=== PATIENT | male | born 1980 | race Caucasian/White ===

== ENCOUNTER → 2016-09-01 | Outpatient (CLI) | payer OTHER ==
[~2016-09-01] VITALS: Ht 188 cm; Wt 111.1 kg
[~2016-09-01] MED LIST: NS 1,000 ML IV SCH; PROPOFOL 200 MG/20 ML VIAL As Ordered ONE; no meds
--- NOTE | 2016-09-01 08:18 | ROOR ---
Patient Name: Joon Rordiguez Procedure Date: 09/01/2016 7:55 AM Date of : 1980 Age: 36 Room: [facility] Gender: Male Note Status: Finalized Procedure: Colonoscopy to Cecum + Biopsy Polypectomy + Random Biopsies Indications: Abdominal pain in the right lower quadrant, Abnormal CT of the GI tract Providers: Stevenson Brantley MD Referring MD: AKANKSHA JOEL MD Requesting Provider: Medicines: Monitored Anesthesia Care Complications: No immediate complications. Procedure: Pre-Anesthesia Assessment: - The heart rate, respiratory rate, oxygen saturations, blood pressure, adequacy of pulmonary ventilation, and response to care were monitored throughout the procedure. The Colonoscope was introduced through the anus and advanced to the cecum, identified by appendiceal orifice and ileocecal valve. The colonoscopy was performed without difficulty. The patient tolerated the procedure well. The quality of the bowel preparation was excellent. Findings: The perianal and digital rectal examinations were normal. Non-bleeding external hemorrhoids were found during retroflexion. The hemorrhoids were mild and Grade I (internal hemorrhoids that do not prolapse). No other significant abnormalities were identified in a careful examination of the remainder of the colon. A diminutive polyp was found at 30 cm proximal to the anus. The polyp was sessile. The polyp was removed with a cold biopsy forceps. Resection and retrieval were complete. Biopsies for histology were taken with a cold forceps from the ascending colon, transverse colon and descending colon for evaluation of microscopic colitis. The exam was otherwise without abnormality. Impression: - Non-bleeding external hemorrhoids. - One diminutive polyp at 30 cm proximal to the anus, removed with a cold biopsy forceps. Resected and retrieved. Biopsied. - The examination was otherwise normal. - The exam was otherwise normal to the cecum. Recommendation: - Patient has a contact number available for emergencies. The signs and symptoms of potential delayed complications were discussed with the patient. Return to normal activities tomorrow. Written discharge instructions were provided to the patient. - High fiber diet. - Discharge patient to home. - Continue present medications. - Await pathology results. - Telephone GI clinic for pathology results in 1 week. - Repeat colonoscopy at age 51 for screening purposes. - Return to referring physician. - The findings and recommendations were discussed with the patient's family. Stevenson Brantley MD Stevenson Brantley MD 09/01/2016 8:18:04 AM This report has been signed electronically. Number of Addenda: 0 Note Initiated On: 09/01/2016 7:55 AM Estimated Blood Loss: Estimated blood loss: none.
[2016-09-01 08:35] VITALS: BP 116/86
== END | disposition home or self-care (01) ==
LOC: M OPP 07:01
PROVIDERS: ATTEND Internal Medicine Gastroenterology
DX: K64.0 First degree hemorrhoids (principal); D12.5 Benign neoplasm of sigmoid colon; K82.9 Disease of gallbladder, unspecified; R06.83 Snoring

== ENCOUNTER → 2016-10-08 | Outpatient (REF) | payer OTHER ==
[~2016-10-08] MED LIST changes: -NS 1,000 ML IV SCH; -PROPOFOL 200 MG/20 ML VIAL As Ordered ONE
== END ==
LOC: M SMT 17:09
PROVIDERS: ATTEND Nurse Practitioner Women's Health
DX: R10.9 Unspecified abdominal pain (principal)

== ENCOUNTER → 2016-10-30 | Outpatient (CLI) | payer OTHER ==
[~2016-10-30] MED LIST changes: +ISOVUE-370 76% 100ML VIAL (Q9967) As Ordered ONE
--- NOTE | 2016-10-30 17:51 | REP ---
CT ABDOMEN AND PELVIS WITHOUT AND WITH CONTRAST: 10/30/2016. Clinical history: RLQ quadrant abdominal pain. Comparison: CT without contrast 06/19/2016, 06/17/2016 at [facility]. Technique: Noncontrast scanning performed followed by bolus of 100 ml Isovue 370, scanning through the abdomen and pelvis. Coronal and sagittal reconstructions were provided. Findings: CT abdomen: The lung bases remain clear. Heart is not enlarged. There is no pericardial thickening or effusion. No hiatal hernia. Liver and spleen are without focal lesion. No hepatic mass, biliary dilatation nor adjacent ascites in the upper abdomen. Adrenal glands normal with only a small amount of retained fluid. Pancreas shows no mass, ductal dilatation or inflammatory change. Kidneys show function without obstruction, stone, mass, perinephric edema or other acute finding. The abdominal aorta is without aneurysm or dissection. No periaortic or other retroperitoneal lymphadenopathy. Small bowel loops in the upper abdomen show slight wall thickening which may reflect some gastroenteritis. Lung window review of all CT slice levels shows no sign of perforation or abscess. Bone windows show lumbar and lower thoracic spine as well as the posterior elements and visualized ribs intact. CT pelvis: Bony hips, pelvis, sacrum and symphysis pubis show no acute finding. There are a few tiny bone islands in the left sacral ala and right iliac bone adjacent to the sacrum as benign stable findings. Bladder only partly filled but without stone, mass or wall thickening. Distal left colon and sigmoid unremarkable. There is no definite sign of colitis or diverticulitis. Appendix is seen and normal. There is no inflammatory change or dilatation. There is some very subtle hyperdense material within, which could be early appendicolith but at its distal tip. Small bowel loops in the pelvis unremarkable. The ileocecal valve unremarkable. No ventral or inguinal hernia, pathologic size inguinal adenopathy or pelvic adenopathy. Impression: 1. No CT evidence of appendicitis, colitis, diverticulitis, stricture or mass. 2. Small bowel loops with a few scattered loops with thickened linton in the upper abdomen suggesting possible gastroenteritis, but no obstruction, mass or ileus. 3. No ascites, adenopathy or other acute finding. No abdominal wall hernia or mass. 4. Solid organs in the upper abdomen are unremarkable. No hydronephrosis, hydroureter, renal or ureteral stone. There was one tiny calcification in a pyramid, interpolar region left kidney about a millimeter; nothing in the collecting system. No hydronephrosis. Signed by Rory Jacobo MD 10/31/2016 02:57 P
== END ==
LOC: M RAD 15:53
PROVIDERS: ATTEND Nurse Practitioner Women's Health
DX: R10.31 Right lower quadrant pain (principal)